=== PATIENT | male | born 1965 | race Caucasian/White ===

== ENCOUNTER 2023-10-31 05:58 | Day surgery (SDC) | payer OTHER ==
[~2023-10-31] VITALS: Ht 182.9 cm; Wt 113.5 kg
[~2023-10-31 05:58] MED LIST: AMIT25TA19 PO; CYMB60CA4 PO; LEVO25TA5 PO; ROSU5TAB40 PO; THERTAB52 PO; TOPA100T12 PO; VITA1TAB26 PO
[2023-10-31] MEDS ORDERED: LR 1,000 ML IV SCH (06:30)
[2023-10-31] MEDS: LIDOCAINE 3.5 % 1ML OPHTH TOPICAL GEL OU ONE (06:49)
[2023-10-31] MEDS ORDERED: fentaNYL 100 MCG/2 ML INJECTION As Ordered ONE (07:02)
[2023-10-31] MEDS ORDERED: MIDAZOLAM INJ 2MG/2ML VIAL As Ordered ONE (07:02)
[2023-10-31] MEDS: LIDOCAINE 2% W/EPINEPHRINE 20ML VIAL **PRES FREE As Ordered ONE (07:35)
[2023-10-31] MEDS: mitoMYcin 0.2 MG/VIAL KIT FOR OPHTHALMIC USE As Ordered ONE (07:44)
[2023-10-31] MEDS: TOBRADEX OPHTH OINT 3.5 GM As Ordered ONE (07:45)
[2023-10-31 08:05] VITALS: BP 133/87; TEMP 97; O2SAT 97
== END 2023-10-31 08:25 | disposition home or self-care (01) ==
LOC: M SDC 05:58
PROVIDERS: ATTEND Ophthalmology
DX: H11.002 Unspecified pterygium of left eye (principal); E03.9 Hypothyroidism, unspecified; E78.5 Hyperlipidemia, unspecified; G43.909 Migraine, unspecified, not intractable, without status migrainosus; G47.33 Obstructive sleep apnea (adult) (pediatric); N40.0 Benign prostatic hyperplasia without lower urinary tract symptoms; Z87.891 Personal history of nicotine dependence; Z79.899 Other long term (current) drug therapy
CPT/HCPCS: 65426; 88304; C1762; J2250; J3010; J7315